=== PATIENT | male | born 1985 | race Caucasian/White ===

== ENCOUNTER 2016-04-24 00:23 | Emergency (ER) | payer MEDICAID ==
[~2016-04-24] VITALS: Ht 175.3 cm; Wt 77.1 kg
[~2016-04-24 00:23] MED LIST: APTIOM; FYCOMPA; LACO100T; LACO200T
[2016-04-24 05:59] VITALS: BP 117/83
== END 2016-04-24 08:35 | disposition home or self-care (01) ==
LOC: ER 00:26
DX: S62.655A Nondisplaced fracture of middle phalanx of left ring finger, initial encounter for closed fracture (principal); W19.XXXA Unspecified fall, initial encounter; Y93.89 Activity, other specified; Y99.8 Other external cause status; Y92.89 Other specified places as the place of occurrence of the external cause; F12.10 Cannabis abuse, uncomplicated; Z87.891 Personal history of nicotine dependence; Z79.899 Other long term (current) drug therapy
CPT/HCPCS: 29125; 73130

== ENCOUNTER 2020-08-23 16:13 | Emergency (ER) | payer MEDICAID ==
[~2020-08-23] VITALS: Ht 175.3 cm; Wt 79.4 kg
[2020-08-23 16:52] VITALS: BP 154/100
[2020-08-23] MEDS ORDERED: KETOROLAC TROMETH 60MG/2ML VIAL IM ONE (17:45)
== END 2020-08-23 18:05 | disposition home or self-care (01) ==
LOC: ER 16:13
DX: S22.31XA Fracture of one rib, right side, initial encounter for closed fracture (principal); S93.601A Unspecified sprain of right foot, initial encounter; Z87.891 Personal history of nicotine dependence; Z79.899 Other long term (current) drug therapy; Y04.2XXA Assault by strike against or bumped into by another person, initial encounter; Y93.89 Activity, other specified; Y92.149 Unspecified place in prison as the place of occurrence of the external cause; Y99.8 Other external cause status
CPT/HCPCS: 71101; 73630; 96372; 99284; J1885

== ENCOUNTER 2021-12-04 09:46 | Emergency (ER) | payer MEDICAID ==
[~2021-12-04] VITALS: Ht 167.6 cm; Wt 81.0 kg
[2021-12-04] MEDS ORDERED: LORazepam MDV 2MG/ML 10 ML IV ONE (11:44)
[2021-12-04] MEDS ORDERED: LORazepam 2MG/ML-1ML VIAL IV ONE (11:45)
[2021-12-04] MEDS ORDERED: SODIUM CHLORIDE 0.9% 500 ML IVB ONE (12:15)
[2021-12-04] MEDS ORDERED: SODIUM CHLORIDE 0.9% 1,000 ML IV ONE (12:15)
[2021-12-04 15:06] LABS: Basophils # (auto) 0 10 ^3/uL (0-0.2); Basophils % (auto) 0.4 % (0.0-2.0); Eosinophils # (auto) 0 10 ^3/uL (0-0.8); Hematocrit 47.2 % (41.0-53.0); Lymphocytes # (auto) 1.4 10 ^3/uL (0.4-5.4); Lymphocytes % (auto) 10.2 % (10.0-50.0); Mean Corpuscular Hemoglobin 30.3 pg (28.0-32.0); Mean Corpuscular Volume 89.1 fL (80.0-100.0); Monocytes # (auto) 0.7 10 ^3/uL (0-1.3); Monocytes % (auto) 5.6 % (0.0-12.0); Neutrophils # (auto) 11.2 10 ^3/uL (1.6-8.6); Neutrophils % (auto) 83.8 % (37.0-80.0); Nucleated Red Blood Cells % 0.1 %; Red Blood Cells 5.29 10^6/uL (4.5-5.90); Red Cell Distribution Width 13.4 % (11.8-14.3); White Blood Cell 13.4 10^3/uL (4.4-10.8)
[2021-12-04 15:25] LABS: BUN/Creatinine Ratio 15.5; Calcium 9.9 mg/dL (8.5-10.1); Magnesium 2.9 mg/dL (1.6-2.6); Potassium 4.5 mmol/L (3.5-5.1)
[2021-12-04 15:32] LABS: INR 1.08 (0.9-1.15)
[2021-12-04] MEDS ORDERED: ONDANSETRON HCL 4 MG/2 ML VIAL IV ONE (18:45)
[2021-12-05] VITALS: BP 151/102
== END 2021-12-05 00:16 | disposition short-term general hospital (02) ==
LOC: EDBD 09:46 → ER 09:54
DX: G40.909 Epilepsy, unspecified, not intractable, without status epilepticus (principal); F12.10 Cannabis abuse, uncomplicated; R41.82 Altered mental status, unspecified; Z87.891 Personal history of nicotine dependence
CPT/HCPCS: 36415; 70450; 71045; 80048; 83735; 85025; 85610; 85730; 87426; 93005; 96374; 96375; 99285; J2060; J2405

== ENCOUNTER 2022-09-15 15:30 | Emergency (ER) | payer MEDICAID ==
[~2022-09-15] VITALS: Ht 175.3 cm; Wt 69.8 kg
[2022-09-15] MEDS ORDERED: ACET500T58 PO (19:49)
[2022-09-15] MEDS ORDERED: AMOX875T4 PO (19:49)
[2022-09-15 20:22] VITALS: BP 121/78
== END 2022-09-15 20:25 | disposition home or self-care (01) ==
LOC: ER 15:30
DX: H66.91 Otitis media, unspecified, right ear (principal); Z87.891 Personal history of nicotine dependence; Z79.2 Long term (current) use of antibiotics; Z79.899 Other long term (current) drug therapy

== ENCOUNTER 2022-12-25 09:59 | Inpatient (IN) | payer MEDICAID ==
[~2022-12-25] VITALS: Ht 182.9 cm; Wt 68.1 kg
[~2022-12-25 09:59] MED LIST changes: +ACET500T58 PO; +AMOX875T4 PO
[2022-12-25] MEDS ORDERED: SODIUM CHLORIDE 0.9% 1,000 ML IV ONE ×2 (10:15)
[2022-12-25 10:32] LABS: Basophils # (auto) 0 10 ^3/uL (0-0.2); Basophils % (auto) 0.1 % (0.0-2.0); Eosinophils # (auto) 0 10 ^3/uL (0-0.8); Hematocrit 46.6 % (41.0-53.0); Hemoglobin 16.3 g/dL (13.5-17.5); Lymphocytes # (auto) 0.5 10 ^3/uL (0.4-5.4); Lymphocytes % (auto) 2.7 % (10.0-50.0); Mean Corpuscular Hemoglobin 31.2 pg (28.0-32.0); Mean Corpuscular Hgb Conc. 34.8 g/dL (32.0-36.0); Mean Corpuscular Volume 89.4 fL (80.0-100.0); Monocytes % (auto) 5.1 % (0.0-12.0); Neutrophils # (auto) 17.5 10 ^3/uL (1.6-8.6); Neutrophils % (auto) 92.1 % (37.0-80.0); Red Blood Cells 5.21 10^6/uL (4.5-5.90); Red Cell Distribution Width 13.3 % (11.8-14.3)
[2022-12-25] MEDS ORDERED: LORazepam 2MG/ML-1ML VIAL ONE (10:53)
[2022-12-25] MEDS ORDERED: LORazepam 2MG/ML-1ML VIAL IV ONE (11:00)
[2022-12-25 11:08] VITALS: PULSE 80; RESP 16; O2SAT 95
[2022-12-25] MEDS ORDERED: MORPHINE SULFATE INJ 2 MG/ml SYRG IV PRN (13:15)
[2022-12-25] MEDS ORDERED: NITROGLYCERIN 0.4 MG SL TAB SL PRN (13:15)
[2022-12-25] MEDS ORDERED: cefTRIAXone 1GM/50ML D5W 50 ML IV ONE (13:15)
[2022-12-25] MEDS ORDERED: LORazepam 2MG/ML-1ML VIAL IV PRN (13:15)
[2022-12-25] MEDS ORDERED: ACETAMINOPHEN 325 MG TAB PO PRN (13:15)
[2022-12-25] MEDS: SODIUM CHLORIDE 0.9% 1,000 ML IV SCH ×2 (13:26→21:35)
[2022-12-25 14:13] LABS: Alanine Aminotransferase 25 U/L (7-40); Alkaline Phosphatase 103 U/L (46-116); Aspartate Aminotransferase 21 U/L (13-40); BUN/Creatinine Ratio 6.5 (10.0-20.0); Bilirubin, Total 0.4 mg/dL (0.2-1.0); Blood Urea Nitrogen 8 mg/dL (9-23); Chloride 95 mmol/L (98-107); Glucose 105 mg/dL (74-106); Potassium 4.7 mmol/L (3.5-5.1); Sodium 123 mmol/L (136-145); Total Protein 7.9 g/dL (5.7-8.2)
[2022-12-25 14:30] LABS: Urine Bacteria NONE SEEN /hpf (None Seen); Urine Blood 2+ /uL (Negative); Urine Clarity Clear (Clear); Urine Protein, UAD TRACE (Negative); Urine Specific Gravity 1.004 (1.001-1.035); Urine Urobilinogen Normal (Negative); Urine WBC 1 /hpf (0 - 3); Urine pH 5.5 (5.0-8.0)
[2022-12-25 14:32] LABS: Urine Color Straw (Yellow)
[2022-12-25 14:38] LABS: Amphetamine Screen, Urine Neg (NEGATIVE)
[2022-12-25 14:39] LABS: Barbiturate Scree,Urine Neg (NEGATIVE); Benzodiazephine Screen, Urine Pos (NEGATIVE); Cannabinoid Screen, Urine Pos (NEGATIVE); Cocaine Screen, Urine Neg (NEGATIVE); Opiate Scree,Urine Neg (NEGATIVE); Phencyclidine Screen, Urine Neg (NEGATIVE)
[2022-12-25] MEDS: LORazepam 2MG/ML-1ML VIAL IV PRN (23:08)
[2022-12-25 23:19] VITALS: PULSE 120; RESP 22; O2SAT 96
[2022-12-26] MEDS: SODIUM CHLORIDE 0.9% 1,000 ML IV SCH ×2 (06:01→14:44)
[2022-12-26 06:15] LABS: Basophils # (auto) 0 10 ^3/uL (0-0.2); Basophils % (auto) 0.2 % (0.0-2.0); Eosinophils # (auto) 0 10 ^3/uL (0-0.8); Hematocrit 46.2 % (41.0-53.0); Hemoglobin 15.9 g/dL (13.5-17.5); Lymphocytes # (auto) 1.1 10 ^3/uL (0.4-5.4); Lymphocytes % (auto) 7.6 % (10.0-50.0); Mean Corpuscular Hemoglobin 31.2 pg (28.0-32.0); Mean Corpuscular Hgb Conc. 34.4 g/dL (32.0-36.0); Mean Corpuscular Volume 90.7 fL (80.0-100.0); Monocytes # (auto) 1.2 10 ^3/uL (0-1.3); Monocytes % (auto) 8.6 % (0.0-12.0); Neutrophils # (auto) 11.7 10 ^3/uL (1.6-8.6); Neutrophils % (auto) 83.6 % (37.0-80.0); Nucleated Red Blood Cells % 0.1 %; Red Blood Cells 5.09 10^6/uL (4.5-5.90); Red Cell Distribution Width 13.2 % (11.8-14.3)
[2022-12-26] MEDS: cefTRIAXone 1GM/50ML D5W 50 ML IV SCH (09:21)
[2022-12-26] MEDS: ENOXAPARIN SOD 40 MG/0.4 ML SYRINGE SC SCH (10:43)
[2022-12-26] MEDS: LORazepam 2MG/ML-1ML VIAL IV PRN (14:27)
[2022-12-26 20:00] VITALS: PULSE 95; RESP 22; O2SAT 97
[2022-12-27] MEDS: SODIUM CHLORIDE 0.9% 1,000 ML IV SCH ×4 (00:49→23:35)
[2022-12-27] MEDS ORDERED: hydrALAZINE HCL 20 MG/ML VL IV PRN (07:00)
[2022-12-27] MEDS ORDERED: HALOPERIDOL LACTATE 5 MG/ML INJ VIAL IM PRN (09:00)
[2022-12-27 09:41] LABS: Basophils # (auto) 0.1 10 ^3/uL (0-0.2); Basophils % (auto) 0.6 % (0.0-2.0); Eosinophils # (auto) 0 10 ^3/uL (0-0.8); Eosinophils % (auto) 0.2 % (0.0-7.0); Hematocrit 48.4 % (41.0-53.0); Hemoglobin 16.3 g/dL (13.5-17.5); Lymphocytes # (auto) 1.2 10 ^3/uL (0.4-5.4); Lymphocytes % (auto) 9.4 % (10.0-50.0); Mean Corpuscular Hemoglobin 30.7 pg (28.0-32.0); Mean Corpuscular Hgb Conc. 33.6 g/dL (32.0-36.0); Mean Corpuscular Volume 91.5 fL (80.0-100.0); Monocytes # (auto) 0.7 10 ^3/uL (0-1.3); Monocytes % (auto) 5.2 % (0.0-12.0); Neutrophils # (auto) 10.8 10 ^3/uL (1.6-8.6); Neutrophils % (auto) 84.6 % (37.0-80.0); Nucleated Red Blood Cells % 0.1 %; Red Blood Cells 5.29 10^6/uL (4.5-5.90); Red Cell Distribution Width 12.9 % (11.8-14.3); White Blood Cell 12.7 10^3/uL (4.4-10.8)
[2022-12-27 10:27] LABS: Alanine Aminotransferase 29 U/L (7-40); Albumin 5.2 g/dL (3.2-4.8); Alkaline Phosphatase 99 U/L (46-116); Anion Gap 10.7 (5-15); Aspartate Aminotransferase 33 U/L (13-40); BUN/Creatinine Ratio 8.5 (10.0-20.0); Blood Urea Nitrogen 8 mg/dL (9-23); Calcium 9.8 mg/dL (8.5-10.1); Carbon Dioxide 20.3 mmol/L (20-30); Chloride 101 mmol/L (98-107); Glucose 123 mg/dL (74-106); Potassium 3.8 mmol/L (3.5-5.1)
[2022-12-27 10:28] LABS: Bilirubin, Total 0.7 mg/dL (0.2-1.0); Total Protein 8.2 g/dL (5.7-8.2)
[2022-12-27 10:34] LABS: Sodium 132 mmol/L (136-145)
[2022-12-27] MEDS: cefTRIAXone 1GM/50ML D5W 50 ML IV SCH (10:55)
[2022-12-27] MEDS: ENOXAPARIN SOD 40 MG/0.4 ML SYRINGE SC SCH (10:56)
[2022-12-27] MEDS ORDERED: cloNIDine HCL 0.1 MG TAB PO PRN (12:45)
[2022-12-27 13:19] VITALS: PULSE 99; RESP 20; O2SAT 96
[2022-12-27 20:18] VITALS: PULSE 99; RESP 20; O2SAT 96
[2022-12-28 08:00] VITALS: RESP 18; O2SAT 98
[2022-12-28 08:41] LABS: COVID19 ANTIGEN SOFIA FIA NEGATIVE (NEGATIVE)
[2022-12-28] MEDS: cefTRIAXone 1GM/50ML D5W 50 ML IV SCH (08:52)
[2022-12-28] MEDS: SODIUM CHLORIDE 0.9% 1,000 ML IV SCH ×2 (09:01→16:15)
[2022-12-28] MEDS: ENOXAPARIN SOD 40 MG/0.4 ML SYRINGE SC SCH (09:51)
[2022-12-28 19:35] VITALS: PULSE 89; O2SAT 95
[2022-12-29] MEDS: SODIUM CHLORIDE 0.9% 1,000 ML IV SCH ×3 (04:33→17:15)
[2022-12-29 07:43] VITALS: RESP 20
[2022-12-29] MEDS: cefTRIAXone 1GM/50ML D5W 50 ML IV SCH (09:04)
[2022-12-29 11:30] VITALS: BP 152/103; PULSE 71; RESP 18; TEMP 99.7; O2SAT 97
[2022-12-29] MEDS: ENOXAPARIN SOD 40 MG/0.4 ML SYRINGE SC SCH (11:38)
[2022-12-29] MEDS ORDERED: LACO150T3 PO (13:48)
[2022-12-29] MEDS ORDERED: BRIV1TAB7 PO (13:48)
[2022-12-29] MEDS: LORazepam 2MG/ML-1ML VIAL IV PRN (16:23)
[2022-12-29 17:00] VITALS: BP 143/90; PULSE 60; RESP 18; TEMP 98.6; O2SAT 95
[2022-12-29 20:00] VITALS: PULSE 62; RESP 16; O2SAT 97
[2022-12-29 22:00] VITALS: BP 140/90; PULSE 62; RESP 16; TEMP 98.8; O2SAT 97
[2022-12-30] MEDS ORDERED: levETIRAcetam 500 MG/5ML INJ IV ONE (00:47)
[2022-12-30 05:00] VITALS: BP 120/75; PULSE 61; RESP 16; TEMP 98.2; O2SAT 98
[2022-12-30] MEDS: SODIUM CHLORIDE 0.9% 1,000 ML IV SCH ×3 (05:30→18:15)
[2022-12-30 07:38] LABS: Basophils # (auto) 0.1 10 ^3/uL (0-0.2); Basophils % (auto) 1.5 % (0.0-2.0); Eosinophils # (auto) 0 10 ^3/uL (0-0.8); Eosinophils % (auto) 0.9 % (0.0-7.0); Hematocrit 38.7 % (41.0-53.0); Hemoglobin 13.7 g/dL (13.5-17.5); Lymphocytes # (auto) 1.8 10 ^3/uL (0.4-5.4); Lymphocytes % (auto) 33.5 % (10.0-50.0); Mean Corpuscular Hemoglobin 31.8 pg (28.0-32.0); Mean Corpuscular Hgb Conc. 35.3 g/dL (32.0-36.0); Mean Corpuscular Volume 90.1 fL (80.0-100.0); Monocytes # (auto) 0.5 10 ^3/uL (0-1.3); Monocytes % (auto) 9.5 % (0.0-12.0); Neutrophils % (auto) 54.6 % (37.0-80.0); Nucleated Red Blood Cells % 0.1 %; Red Cell Distribution Width 12.5 % (11.8-14.3); White Blood Cell 5.5 10^3/uL (4.4-10.8)
[2022-12-30 07:54] LABS: Calcium 8.8 mg/dL (8.5-10.1); Chloride 105 mmol/L (98-107); Potassium 3.6 mmol/L (3.5-5.1); Sodium 138 mmol/L (136-145)
[2022-12-30 07:55] LABS: Anion Gap 6.9 (5-15); Carbon Dioxide 26.1 mmol/L (20-30)
[2022-12-30 08:00] LABS: BUN/Creatinine Ratio 13.6 (10.0-20.0); Blood Urea Nitrogen 11 mg/dL (9-23); Glucose 98 mg/dL (74-106)
[2022-12-30] MEDS: LACOSAMIDE 50 MG TAB PO SCH ×2 (09:27→22:53)
[2022-12-30] MEDS: ENOXAPARIN SOD 40 MG/0.4 ML SYRINGE SC SCH (09:28)
[2022-12-30] MEDS ORDERED: LACOSAMIDE 300 MG PO SCH (10:00)
[2022-12-30] MEDS: APTIOM 800 MG PO SCH ×2 (10:50→22:53)
[2022-12-30] MEDS: LORazepam 2MG/ML-1ML VIAL IV PRN (14:03)
[2022-12-30 17:00] VITALS: BP 141/85; PULSE 69; RESP 17; TEMP 98; O2SAT 97
[2022-12-30 20:00] VITALS: PULSE 73; RESP 16; O2SAT 97
[2022-12-31] MEDS: SODIUM CHLORIDE 0.9% 1,000 ML IV SCH ×3 (02:35→21:37)
[2022-12-31 08:00] VITALS: BP 130/80; PULSE 77; RESP 20; TEMP 98.2; O2SAT 97
[2022-12-31 09:41] VITALS: BP 130/80; PULSE 77; RESP 20; TEMP 98.9; O2SAT 97
[2022-12-31] MEDS: LACOSAMIDE 50 MG TAB PO SCH ×2 (09:45→21:36)
[2022-12-31] MEDS: APTIOM 800 MG PO SCH (09:45)
[2022-12-31] MEDS: ENOXAPARIN SOD 40 MG/0.4 ML SYRINGE SC SCH (09:48)
[2022-12-31 14:16] VITALS: BP 135/84; PULSE 84; RESP 20; TEMP 98.8; O2SAT 99
[2022-12-31 17:07] VITALS: BP 135/80; PULSE 69; RESP 18; TEMP 98.7; O2SAT 99
[2022-12-31 20:00] VITALS: BP 130/80; PULSE 75; PULSE 77; RESP 18; RESP 20; TEMP 98.2; O2SAT 97
[2022-12-31 22:00] VITALS: BP 140/86; PULSE 90; RESP 18; TEMP 98.1; O2SAT 99
[2023-01-01 04:57] VITALS: BP 116/78; PULSE 76; RESP 18; TEMP 98.7; O2SAT 99
[2023-01-01] MEDS: SODIUM CHLORIDE 0.9% 1,000 ML IV SCH ×2 (06:26→11:55)
[2023-01-01 08:30] VITALS: BP 144/90; PULSE 85; RESP 18; TEMP 98.3; O2SAT 98
[2023-01-01] MEDS ORDERED: LACO200T PO ×4 (09:20→09:23)
[2023-01-01] MEDS ORDERED: LEVE500T40 PO (09:21)
[2023-01-01] MEDS ORDERED: ESLI1TAB4 PO (09:22)
[2023-01-01] MEDS ORDERED: APTIOM 800 MG PO SCH (10:00)
[2023-01-01] MEDS: LACOSAMIDE 50 MG TAB PO SCH (10:51)
[2023-01-01] MEDS: ENOXAPARIN SOD 40 MG/0.4 ML SYRINGE SC SCH (10:51)
[2023-01-01 12:36] VITALS: BP_SYST 110; BP_SYST 127; BP_DIAS 61; BP_DIAS 84; PULSE 69; PULSE 91; RESP 20; TEMP 98.5; TEMP 98.6; O2SAT 97; O2SAT 98
[2023-01-01 16:30] VITALS: BP 142/90; PULSE 83; RESP 20; TEMP 98.3; O2SAT 98
== END 2023-01-01 19:04 | disposition home or self-care (01) | DRG 53 ==
LOC: EDBD 09:59 → ER 09:59 → TELE 13:13 → TELE-CENTR 12-29 10:03 → CENTRAL 12-29 18:12 → EAST 12-31 07:12
PROVIDERS: ADMIT Nurse Practitioner Family; ATTEND Family Medicine
DX: G40.909 Epilepsy, unspecified, not intractable, without status epilepticus (principal); E87.1 Hypo-osmolality and hyponatremia; F39 Unspecified mood [affective] disorder; Z20.822 Contact with and (suspected) exposure to COVID-19; Z87.891 Personal history of nicotine dependence; Z79.899 Other long term (current) drug therapy; Z78.1 Physical restraint status; Z91.199 Patient's noncompliance with other medical treatment and regimen due to unspecified reason; Z98.2 Presence of cerebrospinal fluid drainage device; Z87.820 Personal history of traumatic brain injury
CPT/HCPCS: 36415; 70450; 71045; 80048; 80053; 80307; 81001; 84484; 85025; 87040; 87086; 87426; 95819; 96365; 96375; G0378; J0696; J7060